=== PATIENT | female | born 1945 | race Caucasian/White ===

== ENCOUNTER → 2020-12-12 | Outpatient (CLI) | payer MEDICARE ==
[~2020-12-12] MED LIST: Augmentin 875-1 EACH PO; CLON.2 PO; FISH1000 PO; NEBI5 PO
[2020-12-12 14:57] LABS: CHOL/HDL RATIO 2.8; Cholesterol 202 mg/dL (50-200); HDL Cholesterol 71 mg/dL (>39); LDL/HDL RATIO 1.5; Low Density Lipoprotein Chol 105 mg/dL (0-110); Triglycerides 128 mg/dL (30-160); Very Low Density Lipoprot Chol 25 mg/dL (6-32)
== END | disposition home or self-care (01) ==
LOC: LAB SHORT 12:39 → PLD 12:39
PROVIDERS: Student in an Organized Health Care Education/Training Program
DX: C44.519 Basal cell carcinoma of skin of other part of trunk (principal)
CPT/HCPCS: 80061; 88305